=== PATIENT | female | born 1950 | race Two or more races ===

== ENCOUNTER 2023-07-06 23:14 | Emergency (ER) | payer OTHER, MEDICAID ==
[~2023-07-06] VITALS: Ht 157.5 cm; Wt 78.3 kg
[2023-07-07] MEDS ORDERED: AMOX500C2 PO (01:16)
[2023-07-07] MEDS ORDERED: HYDR-4902 PO (01:16)
[2023-07-07] MEDS: MORPHINE SULFATE 4 MG/ML SYR/VIAL IM ONE (01:51)
[2023-07-07 01:55] VITALS: BP 163/73; PULSE 85; RESP 18; TEMP 98.5; O2SAT 94
== END 2023-07-07 01:54 | disposition home or self-care (01) ==
LOC: ER 23:14
DX: K08.89 Other specified disorders of teeth and supporting structures (principal)
CPT/HCPCS: 96372; 99283; J2270

== ENCOUNTER 2024-01-25 15:01 | Emergency (ER) | payer OTHER, MEDICAID ==
[~2024-01-25] VITALS: Ht 154.9 cm; Wt 76.5 kg
[~2024-01-25 15:01] MED LIST: AMOX500C2 PO; HYDR-4902 PO
[2024-01-25 15:54] LABS: Urine Bacteria None Seen /hpf (None Seen)
--- NOTE | 2024-01-25 15:54 | ED.PDOC ---
Musculoskeletal HPI Comments 73y F who presents to the ED for chief complaint of upper extremity pain. Pt states she has been having R upper extremity pain for the past 2 days. Pt states her R arm has felt numb and she has been having lifting or moving her R hand. Pt states she is having pain radiating to the head when she attempts to move her R hand. Pt denies any recent fall or associated injury. Pt has been having R sided headach with associated dizziness since but denies these symptoms now in the ED. Pt has no associated swelling, or signs of injury noted. Pt otherwise denies any other symptoms at this time. Chief Complaint: Upper Extremity Time Seen by MD: 15:50 Primary Care Provider: DHARMESH Magaña Notes: Nurses Notes, Medications Allergies: Coded Allergies: NO KNOWN ALLERGIES (Unverified , 07/06/23) Home Meds Active Scripts Hydrocodone-Acetaminophen (Hydrocodone Bitartrate/AC 5-325 mg) 1 Tab Tab, 1 TAB PO Q4HPRN PRN, #30 TAB Prov:KAYE AUSTIN DO 07/07/23 Amoxicillin Trihydrate (Amoxicillin) 500 Mg Cap, 1 CAP PO TID for 7 Days, #21 CAP Prov:KAYE AUSTIN DO 07/07/23 Information Source: Patient, Relative Mode of Arrival: Ambulatory Brought in by: son Location: Right Extremity Location: Arm, Shoulder Timing: Days Prehospital treatment: None Severity: Moderate Able to Move Extremity: Yes Bear Weight: Fully Pain: None Mechanism: Spontaneous Circumstances: Spontaneous Onset of Symptoms: Spontaneous Symptoms: Pain DVT Risk Factors: NONE Last Tetanus: Unknown Associated signs and symptoms: Shoulder pain, Arm pain Past Medical History Past Medical History (Other): osteoporosis Surgical History: Cholecystectomy Surgical History (Other): eye surgery 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 Family History Family History: Reviewed,noncontributory to illness Social History Smoker: Non-Smoker Alcohol: Denies ETOH Use Drugs: Denies Drug Use Lives In: Home Constitutional: denies: chills, diaphoresis, fatigue, fever, malaise, sweats, weakness, others EENTM: denies: blurred vision, double vision, ear bleeding, ear discharge, ear drainage, ear pain, ear ringing, eye pain, eye redness, hearing loss, mouth pain, mouth swelling, nasal discharge, nose bleeding, nose congestion, nose pain, photophobia, tearing, throat pain, throat swelling, voice changes, others Respiratory: denies: cough, hemoptysis, orthopnea, SOB at rest, shortness of breath, SOB with excertion, stridor, wheezing, others Cardiovascular: denies: chest pain, dizzy spells, diaphoresis, Dyspnea on exertion, edema, irregular heart beat, left arm pain, lightheadedness, palpitations, PND, syncope, others Gastrointestinal: denies: abdomen distended, abdominal pain, blood streaked bowels, constipated, diarrhea, dysphagia, difficulty swallowing, hematemesis, melena, nausea, poor appetite, poor fluid intake, rectal bleeding, rectal pain, vomiting, others Genitourinary: denies: abnormal vagina bleeding, burning, dyspareunia, dysuria, flank pain, frequency, hematuria, incontinence, pain, , vagina dischar ge, urgency, others Neurological: denies: dizziness, fainting, headache, left sided numbness, left sided weakness, numbness, paresthesia, pre-existing deficit, right sided numbness, right sided weakness, seizure, speech problems, tingling, tremors, weakness, others Musculoskeletal: reports: joint pain; denies: back pain, gout, joint swelling, muscle pain, muscle stiffness, neck pain, others Integumetry: denies: bruises, change in color, change in hair/nails, dryness, laceration, lesions, lumps, rash, wounds, others Allergic/Immunocompromised: denies: Difficulty Healing, Frequent Infections, Hives, Itching, others Hematologic/Lymphatic: denies: anemia, blood clots, easy bleeding, easy bruising, swollen glands, others Endocrine: denies: excessive hunger, excessive sweating, excessive thirst, excessive urination, flushing, intolerance to cold, intolerance to heat, unexplained weight gain, unexplained weight loss, others Psychiatric: denies: anxiety, bipolar disorder, depression, hopeless, panic disorder, schizophrenia, sleepless, suicidal, others All Other Systems: Reviewed and Negative Physical Exam General Appearance: No Apparent Distress HEENT: Normal ENT Inspection, Pharynx Normal, TMs Normal Neck: Full Range of Motion, Non-Tender, Normal, Normal Inspection Respiratory: Chest Non-Tender, Lungs Clear, No Accessory Muscle Use, No Respiratory Distress, Normal Breath Sounds Cardiovascular: No Edema, No JVD, No Murmur, No Gallop, Normal Peripheral Pulse s, Regular Rate/Rhythm Breast Exam: Deferred Gastrointestinal: No Organomegaly, Non Tender, No Pulsatile Mass, Normal Bowel Sounds, Soft Genitalia: Deferred Pelvic: Deferred Rectal: Deferred Extremities: No calf tenderness, Normal capillary refill, No pedal edema Musculoskeletal : Location: Right Extremity Location: Shoulder Apperance: Limited ROM, Tenderness: Mild Neurologic: Alert, cap sewer II-XII nml as Tested, No Motor Deficits, Normal Affect, Normal Mood, No Sensory Deficits Cerebellar Function: Normal Reflexes: Normal Skin: Dry, Normal Color, Warm Lymphatic: No Adenopathy Was a procedure done? Was a procedure done?: No Differential Diagnosis EXT Differential Diagnosis: Fracture, Sprain, DJD, Rheumatoid, Arthritis X-Ray, Labs, Meds, VS Vital Signs Date Time Temp Pulse Resp B/P (MAP) Pulse Ox O2 Delivery O2 Flow Rate FiO2 01/25/24 15:15 78 01/25/24 15:05 97.8 86 18 144/82 (102) 95 Lab Test 01/25/24 15:52 01/25/24 15:21 Range/Units Urine Color Light-yellow Yellow Urine Clarity Turbid H Clear Urine pH 6.5 5.0-9.0 Urine Specific Norris 1.017 1.001-1.035 Urine Protein Negative Negative Urine Ketones Negative Negative Urine Blood Negative Negative /uL Urine Nitrite Negative Negative Urine Bilirubin Negative Negative Urine Urobilinogen Normal Negative mg/dL Urine Leukocyte Esterase Negative Negative /uL Urine RBC 1 0 - 4 /hpf Urine WBC 2 0 - 5 /hpf Urine Squamous Epithelial Cells Few <5 /hpf Urine Amorphous Crystals Few None Seen /hpf Urine Bacteria None seen None Seen /hpf Urine Glucose Normal Normal mg/dL POC Glucose 117 H 70-106 mg/dl PROCEDURE(s): RSHD2 - R SHOULDER 2+ VIEW XRAY FINDINGS/IMPRESSION: There is no evidence of acute fracture or dislocation. Soft tissues are unremarkable. PROCEDURE(s): HWOCT - HEAD WITHOUT CONTRAST IMPRESSION: No acute intracranial abnormality. The urine test is negative The patient was discharged The patient will follow up with the primary care doctor The patient will return to the emergency department's condition worsens. Images Reviewed?: Images reviewed and evaluated by me Time of 1ST Reevaluation: 16:20 Reevaluation 1ST: Unchanged Patient Education/Counseling: Diagnosis, Treatment, Prognosis, Need For Follow Up Family Education/Counseling: Diagnosis, Treatment, Prognosis, Need For Follow Up Departure 1 Departure Time of Disposition: 17:59 Impression: Primary Impression: Musculoskeletal pain Disposition: 01 HOME / SELF CARE / HOMELESS Condition: Fair Discharged With: Self Critical Care Note Critical Care Time?: No Stability Stability form required: No Heart Score Heart Score: Heart Score Response (Comments) Value History N/A 0 EKG N/A 0 Age N/A 0 Risk Factors N/A 0 Troponin N/A 0 Total 0 I personally scribed for JANN TAYLOR MD ([email or web address]) on 01/25/24 at 15:54. Electronically submitted by Dmitry Harvey ([email or web address]). I personally scribed for JANN TAYLOR MD ([email or web address]) on 01/25/24 at 16:47. Katie ctronically submitted by Dmitry Harvey ([facility] JANN TAYLOR MD Jan 25, 2024 15:54
[2024-01-25 16:16] LABS: Urine Amorphous Crystal FEW /hpf (None Seen); Urine Blood Negative /uL (Negative); Urine Clarity Turbid (Clear); Urine Color Light-Yellow (Yellow); Urine Protein, UAD Negative (Negative); Urine Specific Gravity 1.017 (1.001-1.035); Urine Urobilinogen Normal (Negative); Urine WBC 2 /hpf (0 - 5); Urine pH 6.5 (5.0-9.0)
--- NOTE | 2024-01-25 16:33 | DVH ---
CLINICAL HISTORY: right sided pain TECHNIQUE: Helical imaging carried out from skull base to vertex without intravenous contrast. This e xam was performed according to our departmental dose optimization program. Up-to-date CT equipment an d radiation dose reduction techniques are utilized as appropriate. WID: COMPARISON: None FINDINGS: The ventricles and subarachnoid spaces are normal in size and configuration for patient age. There i s no midline shift or mass effect. The johnson white matter interfaces are maintained. The basal cistern s are patent. There is no evidence of acute intracranial hemorrhage or extra-axial fluid collection. The mastoid air cells and visualized paranasal sinuses are well-aerated. Calcified plaque in the intr acranial internal carotid arteries. Prior ocular lens replacement. IMPRESSION: No acute intracranial abnormality.
--- NOTE | 2024-01-25 16:35 | DVH ---
CLINICAL INDICATION: right sided rodriguez TECHNIQUE: 4 views of right shoulder XY R SHOULDER 2+ VIEW XRAY Comparison: None FINDINGS/IMPRESSION: There is no evidence of acute fracture or dislocation. Soft tissues are unremarkable.
[2024-01-25 18:12] VITALS: BP 145/78; PULSE 78; RESP 15; TEMP 98.3; O2SAT 97
--- NOTE | 2024-01-26 08:20 | ECG ---
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
== END 2024-01-25 18:11 | disposition home or self-care (01) ==
LOC: ER 15:01
DX: M25.511 Pain in right shoulder (principal); Z90.49 Acquired absence of other specified parts of digestive tract; Z98.890 Other specified postprocedural states
CPT/HCPCS: 70450; 73030; 81001; 82962; 93005

== ENCOUNTER 2024-10-25 23:17 | Inpatient (IN) | payer OTHER, MEDICAID ==
[~2024-10-25] VITALS: Ht 154.9 cm; Wt 75.2 kg
[2024-10-25 23:57] LABS: Hematocrit 41.1 % (36.0-46.0); Hemoglobin 14.1 g/dL (12.2-16.2); Mean Corpuscular Hemoglobin 32.0 pg (28.0-32.0); Mean Corpuscular Volume 93.3 fL (80.0-100.0); Nucleated Red Blood Cells % 0.0 %
[2024-10-26 00:08] LABS: Potassium 3.8 mmol/L (3.5-5.1); Sodium 142 mmol/L (136-145)
[2024-10-26 00:09] LABS: Anion Gap 10 (5-15); Carbon Dioxide 25 mmol/L (20-31)
[2024-10-26 00:10] LABS: Calcium 9.2 mg/dL (8.7-10.4)
[2024-10-26 00:12] LABS: Chloride 107 mmol/L (98-107)
[2024-10-26 00:14] LABS: BUN/Creatinine Ratio 22.4 (10.0-20.0); Blood Urea Nitrogen 15 mg/dL (9-23)
--- NOTE | 2024-10-26 00:15 | ED.PDOC ---
HPI Comments This is a 74 year-old female with a PMHX of HTN, accompanied by daughter, who presents to the ED with a chief complaint of chest pain with associated nausea and fatigue as of X1 hour ago. Patient reports chest pain is a 6/10, spontaneous, with Nitro as a known relief factor. Patient additionally reports swelling to bilateral legs which could possibly be due to leg injections. Patient has no further complaints at this time and otherwise denies further associated symptoms of emesis, cough, shortness of breath, fever, or chills. REVIEW OF SYSTEMS: No fever, no chills, (+) fatigue HEENT: No sore throat, no earache, no congestion, no neck pain. Cardiac: (+) chest pain. No palpitations. Lungs: No shortness of breath, no cough. GI: (+) nausea, no vomiting, no diarrhea, no constipation, no abdominal pain : No dysuria, frequency, or urgency. No hematuria. Musculoskeletal: No joint pain , no joint swelling, no extremity edema. Skin: No rash, no itching. Neuro: No headache, no dizziness, no weakness EXAM: General: Awake, alert and oriented. No acute distress. Skin: Skin in warm, dry and intact. Appropriate color for ethnicity. HEENT: The head is normocephalic and atraumatic. Conjunctivae are clear without exudates or hemorrhage. Sclera is non-icteric. EOM are intact. No signs of nystagmus. Eyelids are normal in appearance without swelling or lesions. Oral mucosa is pink and moist Neck: The neck is supple with normal range of motion. No JVD. Cardiac: Heart rate and rhythm are normal. No murmurs, gallops, or rubs are auscultated. Respiratory: No signs of respiratory distress. Lung sounds are clear in all lobes bilaterally without rales, rhonchi, or wheezes. Abdominal: Abdomen is soft, non-tender without distention. Bowel sounds are present and normoactive in all four quadrants. Extremities: Upper and lower extremities are atraumatic in appearance without deformity or edema. Neurological: The patient is awake, alert and oriented to person, place, and time with normal speech. Speech is clear. There is no facial asymmetry. Psychiatric: Appropriate mood and affect. Good judgement and insight. Chief Complaint: Chest Pain Time Seen by MD: 23:56 Primary Care Provider: DHARMESH Reviewed Notes: Medications, Allergies Allergies: Coded Allergies: NO KNOWN ALLERGIES (Unverified , 07/06/23) Home Meds Active Scripts Hydrocodone-Acetaminophen (Hydrocodone Bitartrate/AC 5-325 mg) 1 Tab Tab, 1 TAB PO Q4HPRN PRN, #30 TAB Prov:KAYE AUSTIN DO 07/07/23 Amoxicillin Trihydrate (Amoxicillin) 500 Mg Cap, 1 CAP PO TID for 7 Days, #21 CAP Prov:KAYE AUSTIN DO 07/07/23 Information Source: Patient, Relative (Child) Mode of Arrival: Ambulatory Severity: Moderate Timing: Hours Duration: Since onset Prehospital treatment: None Associated Signs and Symptoms: Other (nausea and fatigue ) Past Medical History PAST MEDICAL HISTORY: HTN Past Medical History (Other): Neuropathy 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 Was a procedure done?: No CP Differential Dx Differential Diagnosis: Other (Differential diagnoses considered include acute ischemic coronary syndrome, aortic dissection, cardiac tamponade, mediastinitis, pulmonary embolus, pneumothorax, tension pneumothorax, esophageal rupture, coronary artery vasospasm, myocarditis, pericarditis, pneumonia, pulmonary edema, esophageal tear, pancreatitis, aortic stenosis, dilated cardiomyopathy, hypertrophic cardiomyopathy, mitral valve prolapse, malignancy, pleuritis, pneumomediastinum, primary pulmonary hypertension, cholecystitis, esophageal spasm, esophagus, gastritis, GERD, peptic ulcer disease, costochondritis, fibromyalgia, rib fracture, herpes zoster, radicular syndromes, thoracic outlet syndrome, somatization.) X-Ray, Labs, Meds, VS Vital Signs Date Time Temp Pulse Resp B/P (MAP) Pulse Ox O2 Delivery O2 Flow Rate FiO2 10/26/24 02:28 63 10/26/24 00:45 69 10/26/24 00:32 69 10/25/24 23:31 77 10/25/24 23:19 98.2 88 16 138/68 93 98.2 Lab Test 10/26/24 02:22 10/26/24 00:44 10/25/24 23:25 Range/Units Troponin I High Sensitivity < 3 L < 3 L < 3 L </=34 ng/L White Blood Count 6.7 4.4-10.8 10^3/uL Red Blood Count 4.40 4.0-5.20 10^6/uL Hemoglobin 14.1 12.2-16.2 g/dL Hematocrit 41.1 36.0-46.0 % Mean Corpuscular Volume 93.3 80.0-100.0 fL Mean Corpuscular Hemoglobin 32.0 28.0-32.0 pg Mean Corpuscular Hemoglobin Concent 34.4 32.0-36.0 g/dL Red Cell Distribution Width 13.8 11.8-14.3 % Platelet Count 168 140-450 10^3/uL Mean Platelet Volume 9.2 6.9-10.8 fL Neutrophils (%) (Auto) 52.4 37.0-80.0 % Lymphocytes (%) (Auto) 37.2 10.0-50.0 % Monocytes (%) (Auto) 8.0 0.0-12.0 % Eosinophils (%) (Auto) 2.0 0.0-7.0 % Basophils (%) (Auto) 0.4 0.0-2.0 % Neutrophils # (Auto) 3.5 1.6-8.6 10 ^3/uL Lymphocytes # (Auto) 2.5 0.4-5.4 10 ^3/uL Monocytes # (Auto) 0.5 0-1.3 10 ^3/uL Eosinophils # (Auto) 0.1 0-0.8 10 ^3/uL Basophils # (Auto) 0 0-0.2 10 ^3/uL Nucleated Red Blood Cells 0.0 % Sodium Level 142 136-145 mmol/L Potassium Level 3.8 3.5-5.1 mmol/L Chloride Level 107 98-107 mmol/L Carbon Dioxide Level 25 20-31 mmol/L Anion Gap 10 5-15 Blood Urea Nitrogen 15 9-23 mg/dL Creatinine 0.67 0.550-1.02 mg/dL Glomerular Filtration Rate Calc 91 >90 mL/min BUN/Creatinine Ratio 22.4 H 10.0-20.0 Serum Glucose 141 H 74-106 mg/dL Calcium Level 9.2 8.7-10.4 mg/dL B-Type Natriuretic Peptide 30.50 0-100 pg/mL Current Medications Medications (Trade) Dose Ordered Sig/Olivia Route Start Time Stop Time Status Last Admin Aspirin 324 mg ONCE ONCE PO 10/25/24 23:45 10/25/24 23:46 DC 10/26/24 05:[address] [address] Ph: [phone] DIAGNOSTIC IMAGING Diagnostic Imaging Report : [id number] Signed PATIENT: PALOMA BARROSO ACCT: [id number] UNIT: [id number] : 1950 LOC: ER ROOM / BED: / AGE / SEX: 74 / F ADM STATUS: REG ER SERVICE 34 ORDERING PHYSICIAN: JOVITA LADD MD PROCEDURE(s): CXR1 - CHEST XRAY 1 VIEW REASON: cp ORDER NUMBER(s): [id number], ACCESSION NUMBER(s): [id number] EXAM: XY CHEST XRAY 1 VIEW CLINICAL HISTORY: cp TECHNIQUE: Single AP view of the chest WID: COMPARISON: None FINDINGS: Lines and tubes: None Chest: The heart size and pulmonary vasculature is within normal limits. No pleural effusion, pneumothorax, or consolidation. Linear scarring or atelectasis in the left lower lung. The osseous structures are grossly intact. IMPRESSION: No acute cardiopulmonary abnormality. Time of 1ST Reevaluation: 00:48 Reevaluation 1ST: Unchanged Patient Education/Counseling: Other (Need for admission) Family Education/Counseling: Other (Need for admission) SEPSIS Sepsis Screen Date sepsis recognized/suspect: Oct 25, 2024 Time Sepsis recognized/suspect: 2323 Recent Procedure: No On Antibiotic Therapy: No Respiratory Rate >20: No Heart Rate >90: No Temp<36 C (96.8 F) or >38.3 C: No SBP <90 or MAP <65 mmHG: No New Acute Mental Status Change: No Is the patient on CPAP, BIPAP,: No Physician Orders Urinalysis (10/25/24 23:30) Chest Xray 1 View (10/25/24 23:35) Vital Signs Q1HR (10/25/24 23:35) Vital Signs Date Time Temp Pulse Resp B/P (MAP) Pulse Ox O2 Delivery O2 Flow Rate FiO2 10/26/24 02:28 63 10/26/24 00:45 69 10/26/24 00:32 69 10/25/24 23:31 77 10/25/24 23:19 98.2 88 16 138/68 93 98.2 Laboratory Tests Test 10/25/24 23:25 White Blood Count 6.7 10^3/uL (4.4-10.8) Departure 1 Departure Time of Disposition: 01:30 Impression: Primary Impression: Chest pain Disposition: ADMITTED INPATIENT Condition: Fair Comments 74 year old female with multiple risk factors with presents to the ED with ongoing chest pain. Initial troponin and EKG negative. Patient admitted to hospitalist service for further treatment, evaluation and monitoring. Critical Care Note Critical Care Time?: No Stability Stability form required: No Heart Score Heart Score: Heart Score Response (Comments) Value History Highly Suspicious 2 EKG Normal 0 Age >65 2 Risk Factors No known risk factors 0 Troponin Normal limit 0 Total 4 I personally scribed for JOVITA LADD MD ([email or web address]) on 10/26/24 at 00:15. Electronically submitted by Charu Ramirez ([email or web address]). I personally scribed for JOVITA LADD MD ([email or web address]) on 10/26/24 at 00:18. Electronically submitted by Charu Ramirez ([email or web address]). I personally scribed for JOVITA LADD MD ([email or web address]) on 10/26/24 at 00:45. Electronically submitted by Charu Ramirez ([email or web address]). I personally scribed for JOVITA LADD MD ([email or web address]) on 10/26/24 at 01:19. Electronically submitted by Charu Ramirez ([email or web address]). JOVITA LADD MD Oct 26, 2024 00:15
[2024-10-26 00:16] LABS: Glucose 141 mg/dL (74-106)
--- NOTE | 2024-10-26 00:33 | ECG ---
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
--- NOTE | 2024-10-26 00:57 | DVH ---
EXAM: XY CHEST XRAY 1 VIEW CLINICAL HISTORY: cp TECHNIQUE: Single AP view of the chest WID: COMPARISON: None FINDINGS: Lines and tubes: None Chest: The heart size and pulmonary vasculature is within normal limits. No pleural effusion, pneumothorax, or consolidation. Linear scarring or atelectasis in the left lower lung. The osseous structures are grossly intact. IMPRESSION: No acute cardiopulmonary abnormality.
--- NOTE | 2024-10-26 02:29 | ECG ---
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
[2024-10-26] MEDS ORDERED: ONDANSETRON HCL 4 MG/2 ML VIAL IV PRN (04:00)
[2024-10-26] MEDS ORDERED: ACETAMINOPHEN 325 MG TAB PO PRN (04:00)
[2024-10-26] MEDS ORDERED: NITROGLYCERIN 0.4 MG SL TAB SL PRN (04:00)
[2024-10-26] MEDS ORDERED: MORPHINE SULFATE INJ 2 MG/ml SYRG IV PRN (04:00)
--- NOTE | 2024-10-26 04:39 | DVHHP2 ---
History of Present Illness Reason for Visit: Chest pain History of Present Illness 74-year-old female presents for evaluation of chest pain. Patient reports feeling chest pain for an unspecified period of time but subsides after taking nitroglycerin. She states that yesterday symptoms started in the morning and subsided then in the afternoon they return and even after taking nitroglycerin symptoms continued. She describes the pain as substernal pressure-like nonradiating with associated shortness for breath and some nausea. Past Medical History Hypertension and dyslipidemia Past Surgical History Cholecystectomy Family History Noncontributory Smoke: No ALCOHOL: none Drugs: None Lives: with Family Review of Systems Review of Systems Review of systems are currently negative otherwise addressed in HPI. Allergies: Coded Allergies: NO KNOWN ALLERGIES (Unverified , 07/06/23) Medications Current Medications Medications Dose Ordered Sig/Olivia Route Start Time Stop Time Status Last Admin Dose Admin Aspirin 81 mg DAILY PO 10/26/24 10:00 Atorvastatin Calcium 20 mg HS PO 10/26/24 22:00 Lisinopril 10 mg DAILY PO 10/26/24 10:00 Ondansetron HCl 4 mg Q4HP PRN IV 10/26/24 04:00 Acetaminophen 650 mg Q6HP PRN PO 10/26/24 04:00 Nitroglycerin 0.4 mg Q5MINP PRN SL 10/26/24 04:00 Morphine Sulfate 2 mg Q30M PRN IV 10/26/24 04:00 Exam Vital Signs Vital Signs Date Time Temp Pulse Resp B/P (MAP) Pulse Ox O2 Delivery O2 Flow Rate FiO2 10/26/24 02:28 63 10/25/24 23:19 98.2 16 138/68 93 98.2 Exam Gen: 74-year-old female in mild distress Skin: Warm, dry, normal color and texture, no rash. HEENT: Normocephalic atraumatic, mucous membranes moist and pink. Neck: Cervical and supraclavicular nodes normal without enlargement, trachea is midline, thyroid gland is normal without masses. Pulmonary: Clear to auscultation and percussion bilaterally. Cardiac: Regular rate and rhythm. No murmur Abdomen: Soft, nontender, nondistended, bowel sounds present all 4 quadrants, no guarding, no rigidity, no organomegaly. Extremities: No cyanosis, clubbing, no edema Neuro: Cranial nerves II through XII grossly intact, normal affect and speech, no focal motor deficits. Labs/Xrays ORDERING PHYSICIAN: JOVITA LADD MD PROCEDURE(s): CXR1 - CHEST XRAY 1 VIEW REASON: cp ORDER NUMBER(s): [id number], ACCESSION NUMBER(s): [id number] EXAM: XY CHEST XRAY 1 VIEW CLINICAL HISTORY: cp TECHNIQUE: Single AP view of the chest WID: COMPARISON: None FINDINGS: Lines and tubes: None Chest: The heart size and pulmonary vasculature is within normal limits. No pleural effusion, pneumothorax, or consolidation. Linear scarring or atelectasis in the left lower lung. The osseous structures are grossly intact. IMPRESSION: No acute cardiopulmonary abnormality. Labs Test 10/26/24 02:22 10/25/24 23:25 Range/Units Troponin I High Sensitivity < 3 L </=34 ng/L White Blood Count 6.7 4.4-10.8 10^3/uL Red Blood Count 4.40 4.0-5.20 10^6/uL Hemoglobin 14.1 12.2-16.2 g/dL Hematocrit 41.1 36.0-46.0 % Mean Corpuscular Volume 93.3 80.0-100.0 fL Mean Corpuscular Hemoglobin 32.0 28.0-32.0 pg Mean Corpuscular Hemoglobin Concent 34.4 32.0-36.0 g/dL Red Cell Distribution Width 13.8 11.8-14.3 % Platelet Count 168 140-450 10^3/uL Mean Platelet Volume 9.2 6.9-10.8 fL Neutrophils (%) (Auto) 52.4 37.0-80.0 % Lymphocytes (%) (Auto) 37.2 10.0-50.0 % Monocytes (%) (Auto) 8.0 0.0-12.0 % Eosinophils (%) (Auto) 2.0 0.0-7.0 % Basophils (%) (Auto) 0.4 0.0-2.0 % Neutrophils # (Auto) 3.5 1.6-8.6 10 ^3/uL Lymphocytes # (Auto) 2.5 0.4-5.4 10 ^3/uL Monocytes # (Auto) 0.5 0-1.3 10 ^3/uL Eosinophils # (Auto) 0.1 0-0.8 10 ^3/uL Basophils # (Auto) 0 0-0.2 10 ^3/uL Nucleated Red Blood Cells 0.0 % Sodium Level 142 136-145 mmol/L Potassium Level 3.8 3.5-5.1 mmol/L Chloride Level 107 98-107 mmol/L Carbon Dioxide Level 25 20-31 mmol/L Anion Gap 10 5-15 Blood Urea Nitrogen 15 9-23 mg/dL Creatinine 0.67 0.550-1.02 mg/dL Glomerular Filtration Rate Calc 91 >90 mL/min BUN/Creatinine Ratio 22.4 H 10.0-20.0 Serum Glucose 141 H 74-106 mg/dL Calcium Level 9.2 8.7-10.4 mg/dL B-Type Natriuretic Peptide 30.50 0-100 pg/mL SEPSIS Sepsis Screen Date sepsis recognized/suspect: Oct 25, 2024 Time Sepsis recognized/suspect: 2323 Recent Procedure: No On Antibiotic Therapy: No Respiratory Rate >20: No Heart Rate >90: No Temp<36 C (96.8 F) or >38.3 C: No SBP <90 or MAP <65 mmHG: No New Acute Mental Status Change: No Is the patient on CPAP, BIPAP,: No Physician Orders Urinalysis (10/25/24 23:30) Electrocardigram (10/25/24 23:35) Chest Xray 1 View (10/25/24 23:35) Vital Signs Q1HR (10/25/24 23:35) Basic Metabolic Panel (10/27/24 04:00) Aspirin Tablet (10/26/24 10:00) Atorvastatin (Lipitor) (10/26/24 22:00) Lisinopril Tablet (Zestril Tablet) (10/26/24 10:00) Admit (10/26/24 03:52) Ondansetron Hcl (Zofran) (10/26/24 04:00) Cardiac Diet-2gna,Lofat,Lochol (10/26/24 Breakfast) Echo 2d Mode Cardiac Dop (10/26/24 03:52) Condition: Fair (10/26/24 03:52) Acetaminophen Tablet (Tylenol Tablet) (10/26/24 04:00) Bedrest With Bathroom Privileg (10/26/24 03:52) Nitroglycerin Sublingual (Ntrostat Subli (10/26/24 04:00) Morphine Sulfate Injection (10/26/24 04:00) Stat Ekg For Chest Pain (10/26/24 03:52) Notify Of Changes From Base (10/26/24 03:52) Supervisor [employer] For 24 Hours (10/26/24 03:52) Emergency Dysrhythmia Protocol (10/26/24 03:52) Rhythm Strips Once Every Shift (10/26/24 03:52) Oxygen By Nasal Cannula (10/26/24 03:52) Vital Signs Date Time Temp Pulse Resp B/P (MAP) Pulse Ox O2 Delivery O2 Flow Rate FiO2 10/26/24 02:28 63 10/26/24 00:45 69 10/26/24 00:32 69 10/25/24 23:31 77 10/25/24 23:19 98.2 88 16 138/68 93 98.2 Laboratory Tests Test 10/25/24 23:25 White Blood Count 6.7 10^3/uL (4.4-10.8) Assessment/Plan Assessment/Plan Assessment Chest pain rule out ACS Hypertension Dyslipidemia Plan Admit the patient to telemetry to the hospitalist ACS protocol Resume home medications Continue treatment per orders. Plan discussed with: Patient My Orders Orders - DIPAK VALENCIA Procedure Category Date Status Time Basic Metabolic Panel LAB 10/27/24 Verified 04:00 Aspirin Tablet PHA 10/26/24 In Process 10:00 Atorvastatin (Lipitor) PHA 10/26/24 In Process 22:00 Lisinopril Tablet PHA 10/26/24 In Process (Zestril Tablet) 10:00 Admit ADMIT 10/26/24 Transmitted 03:52 Ondansetron Hcl PHA 10/26/24 In Process (Zofran) 04:00 Cardiac DIET 10/26/24 Transmitted Diet-2gna,Lofat,Lochol Breakfast Echo 2d Mode Cardiac US 10/26/24 Logged DOP 03:52 Condition: Fair MARCIE 10/26/24 In Process 03:52 Acetaminophen Tablet PHA 10/26/24 In Process (Tylenol Tablet) 04:00 Bedrest With Bathroom MARCIE 10/26/24 In Process Privileg 03:52 Nitroglycerin PHA 10/26/24 In Process Sublingual (Ntrostat 04:00 Morphine Sulfate PHA 10/26/24 In Process Injection 04:00 Stat Ekg For Chest [facility] 10/26/24 In Process Pain 03:52 Notify Md Of Changes [facility] 10/26/24 In Process From Base 03:52 Supervisor [employer] For [facility] 10/26/24 In Process 24 Hours 03:52 Emergency Dysrhythmia [facility] 10/26/24 In Process Protocol 03:52 Rhythm Strips Once [facility] 10/26/24 In Process Every Shift 03:52 Oxygen By Nasal RT 10/26/24 Transmitted Cannula 03:52 Date of Service: Oct 26, 2024 Billing Provider: DIPAK VALENCIA Common Visit Codes: [id number] INP/OBS CARE (HIGH) DIPAK VALENCIA Oct 26, 2024 04:39
[2024-10-26 05:05] VITALS: BP 127/67; PULSE 67; RESP 16; TEMP 98.2; O2SAT 97
--- NOTE | 2024-10-26 06:50 | ECG ---
[facility] Test Date: 2024-10-25 Test Time: 23:31:40 Pat Name: PALOMA BARROSO Department: Room: 0290 Gender: F Call Center Director: YESI : 1950 Requested By: JOVITA LADD Order Number: [id number] Reading MD: Brady Kohli Measurements Intervals Tracy Rate: 77 P: 43 DC: 154 QRS: 155 QRSD: 129 T: 41 QT: 405 QTc: 459 Interpretive Statements Sinus rhythm Right bundle branch block Electronically Signed On 11-01-2024 22:27:14 PDT by Brady Kohli Please click the below link to view image of tracing.
--- NOTE | 2024-10-26 08:20 | DVHPNRES ---
Progress Note Date Seen: Oct 26, 2024 Resident Creating Document: BETITO MURILLO RESIDENT Medical Necessity Reason Pt with a Central, PICC or Fol: No Subjective Review of Systems Meka Escobar Is a 74-year-old female with no significant past medical history, presented to the ER with chief complain of chest pain, dizziness, nausea. She is unsure about the duration of the chest pain, reports it is present on and off. She describes pain as pressure-like, substernal. Pain improved after taking sublingual NTG. She also complains of associated orthopnea and shortness of breaths while eating and walking since last 1 year. She is also complaining of symptoms of heartburn, that increases on lying down. She complained of difficulty in swallowing liquids since last 2 years. Reports, her PCP recommended follow with Cardiology, she never followed up with anesthesiology medical doctor. PMHx: NA Social history: Non smoker, no alcohol use, no recreational drug use. Lives in house with family. Home medication: dicyclomine, fluticasone, antibiotics, vitamin-D, tolterodine Allergic history: No ROS Constitutional: Denies weight loss, fever and chills. HEENT: Denies changes in vision and hearing. Respiratory: Shortness of breath and cough Cardiovascular: Chest pain, orthopnea GI: Epigastric abdominal pain, dysphagia. denies nausea, vomiting and diarrhea. : Denies dysuria and urinary frequency. Musculoskeletal: Denies myalgias and joint pain Skin: Denies rash and pruritus. Neurological: Denies dizziness, headache, vision or hearing problems Shows examined at bedside today. Her vitals are stable. Complains of epigastric pain and dysphagia. Objective vital signs Vital Sign Date Time Temp Pulse Resp B/P (MAP) Pulse Ox O2 Delivery O2 Flow Rate FiO2 10/26/24 05:37 Room Air* 0 21 10/26/24 05:05 98.2 67 16 127/67 (87) 97 98.2 medications Current Medications Medications Dose Ordered Sig/Olivia Route Start Time Stop Time Status Last Admin Dose Admin Aspirin 81 mg DAILY PO 10/26/24 10:00 Atorvastatin Calcium 20 mg HS PO 10/26/24 22:00 Lisinopril 10 mg DAILY PO 10/26/24 10:00 Ondansetron HCl 4 mg Q4HP PRN IV 10/26/24 04:00 Acetaminophen 650 mg Q6HP PRN PO 10/26/24 04:00 Nitroglycerin 0.4 mg Q5MINP PRN SL 10/26/24 04:00 Morphine Sulfate 2 mg Q30M PRN IV 10/26/24 04:00 Examination General: Patient alert and oriented in person, place and time. Patient following commands. HEENT: Normocephalic, atraumatic, moist mucous membranes Respiratory/pulmonary: Clear lungs bilaterally,no associated crackles or wheezes. Cardiovascular: Normal heart sounds S1 and S2 with no associated murmurs Abdomen: Abdomen nondistended, there is no pain to palpation in any of the abdominal quadrants, no palpable masses. Extremities: Bilateral pitting edema grade 1 and varicosities in bilateral lower leg Peripheral Pulses: 3+ Radial (R). 3+ Radial (L). 3+ Dorsalis pedis (R). 3+ Dorsalis pedis(L) Skin: No rashes or pruritus, there is no sacral edema present at this time. Neurological: Intact cranial nerves with no focal neurologic deficits laboratory and microbiology Laboratory Tests 10/25/24 23:25 Test 10/25/24 23:25 Range/Units Serum Glucose 141 H 74-106 mg/dL Problem List/Assessment/Plan Problem List/Assessment/Plan Chest pain, rule out ACS Rule out life-threatening arrhythmias CXR shows no acute cardiopulmonary abnormality Labs show troponin, BNP WNL EKG shows right bundle branch block Monitoring on telemetry Echo ordered Continue Pain management, Zofran Acute gastritis, possible GERD, possible Peptic ulcer disease, possible Continue pain medication, Zofran Start Protonix and sucralfate Dyslipidemia Continue atorvastatin Essential hypertension Continue lisinopril DIET: Cardiac CODE STATUS: Goals of care discussed with patient at bedside for more than 35 minutes. Full code DISPOSITION: Med/surge Patient's status and plan discussed with the patient. Case discussed with Dr. Caicedo. Plan discussed with: Patient Date of Service: Oct 26, 2024 Billing Provider: JAMAAL CAICEDO MD Common Visit Codes: [id number] INP/OBS CARE(HIGH) BETITO MURILLO RESIDENT Oct 26, 2024 08:20 JAMAAL CAICEDO MD Oct 29, 2024 22:10
[2024-10-26] MEDS: LISINOPRIL 5 MG TAB PO SCH (10:55)
[2024-10-26] MEDS: SUCRALFATE 1 GM/10 ML ORAL SUSP GT SCH (15:46)
[2024-10-26] MEDS: PANTOPRAZOLE 40 MG TAB PO SCH (15:46)
--- NOTE | 2024-10-26 18:31 | DVHSR ---
APPROVED REPORT EXAM: Two-dimensional and M-mode echocardiogram with Doppler and color Doppler. Blood Pressure: 127/67 mmHg INDICATION Chest Pain RISK FACTORS Height: 5'1, Weight: 163 DIMENSIONS LVDd3.8 (3.8-5.7cm)LA (2D)3.3 (1.9-4.0cm)Aortic Root2.7 (2.0-3.7cm) LVDs2.4 (2.5-4.0cm)LA (MM) (1.9-4.0cm)Aortic Cusp Exc1.7 (1.5-2.0cm) EF (%) 60.0 (55-70%)Rt. Atrium3.2 (1.9-4.0cm)Asc. Aorta2.9 cm IVSd0.8 (0.7-1.1cm)RV (D)3.0 (1.8-2.4cm) PWd0.7 (0.7-1.1cm) Mitral Valve MitralMitral Stenosis E wave0.74m/sMV Mean GR.mmHg A wave0.98m/sMV Peak GR.68mmHg E/A ratio0.82D MVAcm2 DECEL [id number] 1/2 Timems Aortic Valve Aortic ValveAortic Stenosis V11.08m/Bishop Mean GR.4mmHg V21.41m/Bishop Peak GR.9mmHg LVOT Diameter1.7 (1.8-2.4cm)Doppler AVA1.74cm2 Pulmonic Valve V20.99m/s Tricuspid Valve TR Velocity2.30m/s [id number] Conclusion LV EF IS 65% NORMAL VALVES NO EFFUSION NORMAL RV FUNCTION NORMAL RVSP AND IS 26 MM OF HG
[2024-10-26 19:45] VITALS: PULSE 63; RESP 18; O2SAT 95
[2024-10-26] MEDS: ATORVASTATIN 20 MG TAB PO SCH (22:04)
[2024-10-27] VITALS (8 sets, daily range): BP systolic 110–134; BP diastolic 56–81; PULSE 64–73; RESP 16–19; TEMP 97.7–98.5; O2SAT 95–97
[2024-10-27 06:58] LABS: Urine Protein, UAD Negative (Negative)
[2024-10-27 09:50] LABS: Potassium 3.9 mmol/L (3.5-5.1); Sodium 142 mmol/L (136-145)
[2024-10-27 09:51] LABS: Anion Gap 8 (5-15); Carbon Dioxide 26 mmol/L (20-31)
[2024-10-27 09:56] LABS: BUN/Creatinine Ratio 16.7 (10.0-20.0); Blood Urea Nitrogen 12 mg/dL (9-23)
[2024-10-27 09:59] LABS: Calcium 8.7 mg/dL (8.7-10.4); Chloride 108 mmol/L (98-107); Glucose 166 mg/dL (74-106)
--- NOTE | 2024-10-27 16:54 | DVHPNRES ---
Progress Note Date Seen: Oct 27, 2024 Resident Creating Document: BETITO MURILLO RESIDENT Medical Necessity Reason Pt with a Central, PICC or Fol: No Subjective Review of Systems Meka Escobar Is a 74-year-old female with no significant past medical history, presented to the ER with chief complain of chest pain, dizziness, nausea. She is unsure about the duration of the chest pain, reports it is present on and off. She describes pain as pressure-like, substernal. Pain improved after taking sublingual NTG. She also complains of associated orthopnea and shortness of breaths while eating and walking since last 1 year. She is also complaining of symptoms of heartburn, that increases on lying down. She complained of difficulty in swallowing liquids since last 2 years. 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 PMHx: NA Social history: Non smoker, no alcohol use, no recreational drug use. Lives in house with family. Home medication: dicyclomine, fluticasone, antibiotics, vitamin-D, tolterodine Allergic history: No ROS Constitutional: Denies weight loss, fever and chills. HEENT: Denies changes in vision and hearing. Respiratory: Shortness of breath and cough Cardiovascular: Chest pain, orthopnea GI: Epigastric abdominal pain, dysphagia. denies nausea, vomiting and diarrhea. : Denies dysuria and urinary frequency. Musculoskeletal: Denies myalgias and joint pain Skin: Denies rash and pruritus. Neurological: Denies dizziness, headache, vision or hearing problems Shows examined at bedside today. Her vitals are stable. Complains of residual chest and epigastric pain, and dysphagia. We will continue evaluating and monitoring the patient. Objective vital signs Vital Sign Date Time Temp Pulse Resp B/P (MAP) Pulse Ox O2 Delivery O2 Flow Rate FiO2 10/27/24 12:45 98.5 73 16 132/75 (94) 95 98.5 10/27/24 08:00 Room Air* 0 21 Total Intake and Output 10/26/24 10/26/24 10/27/24 15:00 23:00 07:00 Intake Total 0 ml Output Total 1 ml Balance -1 ml medications Current Medications Medications Dose Ordered Sig/Olivia Route Start Time Stop Time Status Last Admin Dose Admin Aspirin 81 mg DAILY PO 10/26/24 10:00 10/27/24 09:30 81 MG Atorvastatin Calcium 20 mg HS PO 10/26/24 22:00 10/26/24 22:04 20 MG Lisinopril 10 mg DAILY PO 10/26/24 10:00 10/27/24 09:30 10 MG Ondansetron HCl 4 mg Q4HP PRN IV 10/26/24 04:00 Acetaminophen 650 mg Q6HP PRN PO 10/26/24 04:00 Nitroglycerin 0.4 mg Q5MINP PRN SL 10/26/24 04:00 Morphine Sulfate 2 mg Q30M PRN IV 10/26/24 04:00 Pantoprazole Sodium 40 mg DAILY@0600 PO 10/26/24 13:15 10/27/24 05:25 40 MG Sucralfate 1 gm BID@0600,2200 GT 10/26/24 13:15 10/27/24 05:25 1 GM Lactulose 15 ml DAILY PO 10/28/24 10:00 UNV Examination General: Patient alert and oriented in person, place and time. Patient following commands. HEENT: Normocephalic, atraumatic, moist mucous membranes Respiratory/pulmonary: Clear lungs bilaterally,no associated crackles or wheezes. Cardiovascular: Normal heart sounds S1 and S2 with no associated murmurs Abdomen: Abdomen nondistended, there is no pain to palpation in any of the abdominal quadrants, no palpable masses. Extremities: Bilateral pitting edema grade 1 and varicosities in bilateral lower leg Peripheral Pulses: 3+ Radial (R). 3+ Radial (L). 3+ Dorsalis pedis (R). 3+ Dorsalis pedis(L) Skin: No rashes or pruritus, there is no sacral edema present at this time. Neurological: Intact cranial nerves with no focal neurologic deficits laboratory and microbiology Laboratory Tests 10/27/24 09:11 10/25/24 23:25 Test 10/27/24 09:11 Range/Units Serum Glucose 166 H 74-106 mg/dL Problem List/Assessment/Plan Problem List/Assessment/Plan Chest pain, rule out ACS Rule out life-threatening arrhythmias CXR shows no acute cardiopulmonary abnormality Labs show troponin, BNP WNL EKG shows right bundle branch block Monitoring on telemetry Echo ordered Ordered influenza, COVID-19 Drug screen ordered ESR and CRP ordered Continue Pain management, Zofran Rule out DVT, PE D-dimer ordered Acute gastritis, possible GERD, possible Peptic ulcer disease, possible Continue pain medication, Zofran Start Protonix and sucralfate Dyslipidemia Continue atorvastatin Essential hypertension Continue lisinopril History of constipation Started on lactulose DIET: Cardiac CODE STATUS: Goals of care discussed with patient at bedside for more than 35 minutes. Full code DISPOSITION: Med/surge Patient's status and plan discussed with the patient. Case discussed with Dr. Caicedo. Plan discussed with: Patient My Orders My Orders Orders - BETITO MURILLO RESIDENT Procedure Category Date Status Time Discontinue Tele MARCIE 10/27/24 In Process 06:29 Transfer Orders XFER 10/27/24 Transmitted 06:29 Communication Order ORDERS 10/27/24 Transmitted 06:29 Date of Service: Oct 27, 2024 Billing Provider: JAMAAL CAICEDO MD Common Visit Codes: [id number] INP/OBS CARE(HIGH) BETITO MURILLO RESIDENT Oct 27, 2024 16:54 JAMAAL CAICEDO MD Oct 29, 2024 22:52
[2024-10-27 17:24] LABS: COVID19 ANTIGEN SOFIA FIA NEGATIVE (NEGATIVE)
[2024-10-27] MEDS: LACTULOSE 20Gm/30ML SOLN PO ONE (18:49)
[2024-10-27 20:36] LABS: Amphetamine Screen, Urine Neg (NEGATIVE); Barbiturate Scree,Urine Neg (NEGATIVE); Benzodiazephine Screen, Urine Neg (NEGATIVE); Cannabinoid Screen, Urine Neg (NEGATIVE); Cocaine Screen, Urine Neg (NEGATIVE); Opiate Scree,Urine Neg (NEGATIVE); Phencyclidine Screen, Urine Neg (NEGATIVE)
[2024-10-28 01:00] VITALS: BP 106/64; PULSE 64; RESP 16; TEMP 98.2; O2SAT 96
[2024-10-28 05:00] VITALS: BP 119/68; PULSE 65; RESP 17; TEMP 97.5; O2SAT 100
[2024-10-28 06:58] LABS: Alanine Aminotransferase 17 U/L (7-40); Albumin 3.9 g/dL (3.2-4.8); Alkaline Phosphatase 92 U/L (46-116); Anion Gap 8 (5-15); BUN/Creatinine Ratio 15.1 (10.0-20.0); Bilirubin, Total 0.6 mg/dL (0.2-1.0); Blood Urea Nitrogen 11 mg/dL (9-23); Calcium 9.1 mg/dL (8.7-10.4); Carbon Dioxide 26 mmol/L (20-31); Chloride 107 mmol/L (98-107); Potassium 4.1 mmol/L (3.5-5.1); Sodium 141 mmol/L (136-145); Total Protein 6.7 g/dL (5.7-8.2)
[2024-10-28 06:59] LABS: Glucose 112 mg/dL (74-106)
[2024-10-28 09:00] VITALS: BP 117/67; PULSE 60; RESP 18; TEMP 97.9; O2SAT 93
[2024-10-28] MEDS: LACTULOSE 20Gm/30ML SOLN PO SCH (10:38)
[2024-10-28] MEDS ORDERED: CALC600C PO (12:54)
[2024-10-28 12:59] VITALS: BP 117/71; PULSE 64; RESP 16; TEMP 98.4; O2SAT 96
--- NOTE | 2024-10-28 16:23 | DVHDSRES ---
Discharge Summary Date of Admission Resident Creating Document: BETITO MURILLO RESIDENT Oct 26, 2024 at 03:52 Date of Discharge: Oct 28, 2024 Labs/Diagnostic Data: Laboratory Results Test 10/28/24 06:15 10/27/24 20:13 10/27/24 18:15 10/27/24 16:30 Sodium Level 141 mmol/L (136-145) Potassium Level 4.1 mmol/L (3.5-5.1) Chloride Level 107 mmol/L (98-107) Carbon Dioxide Level 26 mmol/L (20-31) Anion Gap 8 (5-15) Blood Urea Nitrogen 11 mg/dL (9-23) Creatinine 0.73 mg/dL (0.550-1.02) Glomerular Filtration Rate Calc 85 mL/min (>90) BUN/Creatinine Ratio 15.1 (10.0-20.0) Serum Glucose 112 mg/dL (74-106) Calcium Level 9.1 mg/dL (8.7-10.4) Total Bilirubin 0.6 mg/dL (0.2-1.0) Aspartate Amino Transferase (AST) 29 U/L (13-40) Alanine Aminotransferase (ALT) 17 U/L (7-40) Alkaline Phosphatase 92 U/L (46-116) Total Protein 6.7 g/dL (5.7-8.2) Albumin 3.9 g/dL (3.2-4.8) Urine Opiates Screen Neg (NEGATIVE) Urine Fentanyl Screen Neg (NEGATIVE) Urine Barbiturates Screen Neg (NEGATIVE) Urine Phencyclidine Screen Neg (NEGATIVE) Urine Amphetamines Screen Neg (NEGATIVE) Urine Benzodiazepines Screen Neg (NEGATIVE) Urine Cocaine Screen Neg (NEGATIVE) Urine Cannabinoids Screen Neg (NEGATIVE) Erythrocyte Sedimentation Rate 7 mm/hr (0-20) D-Dimer, Quantitative 1.06 mg/L FEU (0.0-0.49) Influenza Type A Antigen Negative (Negative) Influenza Type B Antigen Negative (Negative) SARS-CoV-2 Antigen (Rapid) Negative (NEGATIVE) Test 10/27/24 09:11 10/27/24 05:15 10/26/24 02:22 10/25/24 23:25 C-Reactive Protein High Sensitivity 0.06 mg/dL (<1.0) Urine Color Light-yellow (Yellow) Urine Clarity Clear (Clear) Urine pH 6.5 (5.0-9.0) Urine Specific [place] 1.013 (1.001-1.035) Urine Protein Negative (Negative) Urine Ketones Negative (Negative) Urine Blood Negative /uL (Negative) Urine Nitrite Negative (Negative) Urine Bilirubin Negative (Negative) Urine Urobilinogen Normal mg/dL (Negative) Urine Leukocyte Esterase Negative /uL (Negative) Urine RBC <1 /hpf (0 - 4) Urine Microscopic WBC 2 /HPF (0-5) Urine Squamous Epithelial Cells Few /hpf (<5) Urine Bacteria None seen /hpf (None Seen) Urine Glucose Normal mg/dL (Normal) Troponin I High Sensitivity < 3 ng/L (</=34) White Blood Count 6.7 10^3/uL (4.4-10.8) Red Blood Count 4.40 10^6/uL (4.0-5.20) Hemoglobin 14.1 g/dL (12.2-16.2) Hematocrit 41.1 % (36.0-46.0) Mean Corpuscular Volume 93.3 fL (80.0-100.0) Mean Corpuscular Hemoglobin 32.0 pg (28.0-32.0) Mean Corpuscular Hemoglobin Concent 34.4 g/dL (32.0-36.0) Red Cell Distribution Width 13.8 % (11.8-14.3) Platelet Count 168 10^3/uL (140-450) Mean Platelet Volume 9.2 fL (6.9-10.8) Neutrophils (%) (Auto) 52.4 % (37.0-80.0) Lymphocytes (%) (Auto) 37.2 % (10.0-50.0) Monocytes (%) (Auto) 8.0 % (0.0-12.0) Eosinophils (%) (Auto) 2.0 % (0.0-7.0) Basophils (%) (Auto) 0.4 % (0.0-2.0) Neutrophils # (Auto) 3.5 10 ^3/uL (1.6-8.6) Lymphocytes # (Auto) 2.5 10 ^3/uL (0.4-5.4) Monocytes # (Auto) 0.5 10 ^3/uL (0-1.3) Eosinophils # (Auto) 0.1 10 ^3/uL (0-0.8) Basophils # (Auto) 0 10 ^3/uL (0-0.2) Nucleated Red Blood Cells 0.0 % B-Type Natriuretic Peptide 30.50 pg/mL (0-100) Other Laboratory Tests 10/28/24 06:15 10/25/24 23:25 Brief Hx & Hospital Course: Meka Escobar Is a 74-year-old female with no significant past medical history, presented to the ER with chief complain of chest pain, dizziness, nausea. She is unsure about the duration of the chest pain, reports it is present on and off. She describes pain as pressure-like, substernal. Pain improved after taking sublingual NTG. She also complains of associated orthopnea and shortness of breaths while eating and walking since last 1 year. She is also complaining of symptoms of heartburn, that increases on lying down. She complained of difficulty in swallowing liquids since last 2 years. Reports, her PCP recommended follow with Cardiology, she never followed up with back tender insulation board. Hospital course: He was admitted along the lines of chest pain, to rule out ACS. Initial labs revealed a normal troponin, BNP. EKG showed right bundle-branch block. CXR showed no acute abnormality He was started on telemetry. She was started with pain management. Echo done, revealed LV EF IS 65%. Labs reveal normal ESR, CRP. Her condition improved, she will be discharged home with antacids. Will follow closely with primary care. Discharge diagnosis: Chest pain, ruled out ACS Ruled out life-threatening arrhythmias Ruled out DVT, PE Acute gastritis, possible GERD, possible Peptic ulcer disease, possible Dyslipidemia Essential hypertension History of constipation Discharge plan: Follow with PCP in 1 week Follow with discharge clinic in 2 weeks Continue home medications Operations or Procedures XY CHEST XRAY 1 VIEW CLINICAL HISTORY: cp TECHNIQUE: Single AP view of the chest WID: COMPARISON: None FINDINGS: Lines and tubes: None Chest: The heart size and pulmonary vasculature is within normal limits. No pleural effusion, pneumothorax, or consolidation. Linear scarring or atelectasis in the left lower lung. The osseous structures are grossly intact. IMPRESSION: No acute cardiopulmonary abnormality. --- Two-dimensional and M-mode echocardiogram with Doppler and color Doppler. Blood Pressure: 127/67 mmHg INDICATION Chest Pain RISK FACTORS Height: 5'1, Weight: 163 DIMENSIONS LVDd 3.8 (3.8-5.7cm) LA (2D) 3.3 (1.9-4.0cm) Aortic Root 2.7 (2.0- 3.7cm) LVDs 2.4 (2.5-4.0cm) LA (MM) (1.9-4.0cm) Aortic Cusp Exc 1.7 (1.5- 2.0cm) EF (%) 60.0 (55-70%) Rt. Atrium 3.2 (1.9-4.0cm) Asc. Aorta 2.9 cm IVSd 0.8 (0.7-1.1cm) RV (D) 3.0 (1.8-2.4cm) PWd 0.7 (0.7-1.1cm) Mitral Valve Mitral Mitral Stenosis E wave 0.74m/s MV Mean GR. mmHg A wave 0.98m/s MV Peak GR. 68mmHg E/A ratio 0.8 2D MVA cm2 DECEL Time 268ms PRESS 1/2 Time ms Aortic Valve Aortic Valve Aortic Stenosis V1 1.08m/s AO Mean GR. 4mmHg V2 1.41m/s AO Peak GR. 9mmHg LVOT Diameter 1.7 (1.8-2.4cm) Doppler BERNIE 1.74cm2 Pulmonic Valve V2 0.99m/s Tricuspid Valve TR Velocity 2.30m/s RVSP 26mmHg Conclusion LV EF IS 65% NORMAL VALVES NO EFFUSION NORMAL RV FUNCTION NORMAL RVSP AND IS 26 MM OF HG -- Condition at Discharge: Stable Final Diagnosis/Problems List Chest pain ruled out ACS GERD / Esophagitis Discharge Disposition: Home Discharge Instruct/Medications Diet: Cardiac 2g Na,low cholest Diet comment: avoid ETOH, spicy food and citrus food. Activity: No Restrictions, As Tolerated Follow Up/Referral: PCP within [address] Caicedo Friday AM Medications: as per EHR [facility] Scheduled Amoxicillin Trihydrate (Amoxicillin), 1 CAP PO TID Calcium Carbonate (Antacid) (Maalox), 600 MG PO BID Scheduled PRN Hydrocodone-Acetaminophen (Hydrocodone Bitartrate/AC 5-325 mg), 1 TAB PO Q4HPRN PRN Discharge Statement: "Patient was advised to return to the ER or call 911 if any headaches, dizziness, shortness of breath, chest pain, abdominal pain, bleeding, fevers, or worsening of medical condition. Patient was counseled about treatment plan, medications, possible side effects, patientverbalized understanding. All questions were answered to the best of my ability. This discharge took greater then 30 minutes in planning, reviewing documentation, counseling the patient, and discussing with other team members." ASSESSMENT ASSESSMENT Assessment Chest pain ruled out ACS GERD / Esophagitis Date of Service: Oct 28, 2024 Billing Provider: JAMAAL CAICEDO MD Common Visit Codes: 16878-KDS/OBS DISCH DAY >30min BETITO MURILLO RESIDENT Oct 28, 2024 16:23 JAMAAL CAICEDO MD Oct 29, 2024 23:03
== END 2024-10-28 13:30 | disposition home or self-care (01) | DRG 392 ==
LOC: ER 23:17 → OVERFLOW 10-26 03:52 → TELE-WESTW 10-27 04:18 → WEST WING 10-27 07:15
PROVIDERS: ADMIT Student in an Organized Health Care Education/Training Program; ATTEND Student in an Organized Health Care Education/Training Program
DX: K21.9 Gastro-esophageal reflux disease without esophagitis (principal); K29.00 Acute gastritis without bleeding; Z20.822 Contact with and (suspected) exposure to COVID-19; K20.90 Esophagitis, unspecified without bleeding; I10 Essential (primary) hypertension; E78.5 Hyperlipidemia, unspecified; K27.9 Peptic ulcer, site unspecified, unspecified as acute or chronic, without hemorrhage or perforation; Z90.49 Acquired absence of other specified parts of digestive tract; Z79.899 Other long term (current) drug therapy
CPT/HCPCS: 36415; 71045; 80048; 80053; 80307; 81001; 83880; 84484; 85025; 85379; 85652; 86141; 87426; 87804; 93005; 93306; G0378